=== PATIENT | female | born 1980 | race Native Hawaiian/Other Pacific Islander ===

== ENCOUNTER 2020-11-03 17:34 | Outpatient (CLI) | payer OTHER ==
[2020-11-03 18:35] LABS: PLATELET COUNT 300 K/uL (152-353)
[2020-11-03 20:00] LABS: POTASSIUM 3.8 mmol/L (3.6-5.2); SODIUM 139 mmol/L (136-145)
== END 2020-11-03 22:06 | disposition home or self-care (01) ==
LOC: LAB 17:34 → LABW 17:34 → LAB 22:06
PROVIDERS: ATTEND Nurse Practitioner Family
DX: R07.9 Chest pain, unspecified (principal)
CPT/HCPCS: 36415; 80053; 82550; 82553; 84443; 84484; 85027

== ENCOUNTER 2022-01-20 18:39 | Outpatient (CLI) | payer OTHER ==
[2022-01-20 19:17] LABS: PLATELET COUNT 308 K/uL (152-353)
[2022-01-20 19:28] LABS: POTASSIUM 3.3 mmol/L (3.6-5.2)
== END 2022-01-20 22:29 | disposition home or self-care (01) ==
LOC: LABW 18:39
PROVIDERS: ATTEND Nurse Practitioner Family
DX: R07.89 Other chest pain (principal)
CPT/HCPCS: 36415; 80053; 82550; 84484; 85027; 93005

== ENCOUNTER 2022-07-15 12:34 | Outpatient (CLI) | payer OTHER | END 2022-07-15 19:18 | disposition home or self-care (01) | LOC: RAD 12:34 | PROVIDERS: ATTEND Nurse Practitioner Primary Care | DX: M79.601 Pain in right arm (principal); M79.671 Pain in right foot ==

== ENCOUNTER 2022-12-19 09:20 | Outpatient (CLI) | payer OTHER | END 2022-12-19 19:20 | disposition home or self-care (01) | LOC: RAD 09:20 | PROVIDERS: ATTEND Physician Assistant | DX: M25.532 Pain in left wrist (principal) ==